=== PATIENT | male | born 1965 | race Caucasian/White ===

== ENCOUNTER 2019-12-05 07:57 | Day surgery (SDC) | payer MEDICAID ==
[~2019-12-05] VITALS: Ht 182.9 cm; Wt 102.3 kg
[2019-12-05] MEDS ORDERED: MECO10006 PO (08:22)
[2019-12-05] MEDS ORDERED: CHOL500049 PO (08:22)
[2019-12-05] MEDS ORDERED: METO25TA6 PO (08:22)
[2019-12-05] MEDS ORDERED: LEVO50TA PO (08:22)
[2019-12-05 08:30] VITALS: BP 161/118
[2019-12-05] MEDS ORDERED: normal saline 1000ml 1,000 ML IV PRN (08:45)
[2019-12-05] MEDS ORDERED: albumin 25% 100mL bottle x 1 IV PRN (08:45)
[2019-12-05 10:00] VITALS: BP 161/118
[2019-12-05 10:07] VITALS: BP 152/117
--- NOTE | 2019-12-05 10:30 | NUR ---
Spoke to to Racquel at Dr. Pineda's office in regards to labs for thoracentesis fluid.
[2019-12-05 11:30] LABS: AMYLASE,BODY FLUID 21 U/L; GLUCOSE,BODY FLUID 98 MG/DL; LDH,BODY FLUID 70 U/L
[2019-12-05 11:39] LABS: TOTAL PROTEIN,BODY FLUID < 2.0 G/DL
[2019-12-05 11:56] LABS: BF RBC COUNT 366 /CU MM; BF WBC COUNT 237 /CU MM (0-1000); BFAPPEAR CLOUDY; BFCOLOR YELLOW; BFVOLUME 60 ML
[2019-12-05 11:57] LABS: BF MESOTHELIAL CELLS MODERATE; LYMPHOCYTES,BODY FLUID 57 %; MONOCYTES,BODY FLUID 8 %; NEUTROPHILS,BODY FLUID 35 %
== END 2019-12-05 10:40 | disposition home or self-care (01) ==
LOC: SSTAY O 07:57
PROVIDERS: ATTEND Radiology Vascular & Interventional Radiology
DX: R18.8 Other ascites (principal); R14.0 Abdominal distension (gaseous); J90 Pleural effusion, not elsewhere classified; E03.9 Hypothyroidism, unspecified; I10 Essential (primary) hypertension; F10.20 Alcohol dependence, uncomplicated; F17.290 Nicotine dependence, other tobacco product, uncomplicated; Z79.899 Other long term (current) drug therapy
CPT/HCPCS: 32555; 71045; 76705; 82150; 82945; 83615; 84157; 87070; 89051

== ENCOUNTER 2023-07-27 08:22 | Emergency (ER) | payer MEDICAID ==
[~2023-07-27] VITALS: Ht 182.9 cm; Wt 104.8 kg
[~2023-07-27 08:22] MED LIST: CHOL500049 PO; LEVO50TA PO; LOP25T PO; MECO10006 PO
[2023-07-27 08:29] VITALS: BP 161/107; PULSE 112; RESP 24; TEMP 99.1; O2SAT 95
[2023-07-27 09:40] LABS: BASOPHILS % (AUTO) 0.5 % (0-1); EOSINOPHILS # (AUTO) 0.2 X10'3 (0-0.9); EOSINOPHILS % (AUTO) 2.2 % (0-6); HEMATOCRIT 35.3 % (42.0-52.0); HEMOGLOBIN 11.8 g/dl (14.0-17.9); LYMPHOCYTES # (AUTO) 0.9 X10'3 (1.1-4.8); LYMPHOCYTES % (AUTO) 11.2 % (21-51); MEAN CORPUSCULAR HEMOGLOBIN 31.1 PG (27.0-31.0); MEAN CORPUSCULAR HGB CONC 33.4 g/dL (33.0-36.5); MEAN PLATELET VOLUME 9.6 FL (7.4-10.4); MONOCYTES # (AUTO) 1.2 X10'3 (0-0.9); MONOCYTES % (AUTO) 14.7 % (2-12); NEUTROPHILS # (AUTO) 5.6 X10'3 (1.8-7.7); NEUTROPHILS % (AUTO) 71.4 % (42-75); PLATELET COUNT 211 X10'3 (140-440); RED CELL DISTRIBUTION WIDTH 15.2 % (11.5-14.5); WHITE BLOOD COUNT 7.9 X10'3 (4.5-11.0)
[2023-07-27 10:35] LABS: ALBUMIN 3.6 G/DL (3.4-5.0); ANION GAP 12 (8-16); BLOOD UREA NITROGEN 48 MG/DL (7-18); BUN/CREATININE RATIO 10.7 (10.0-20.0); CALCIUM 9.1 MG/DL (8.5-10.1); CHLORIDE 103 MMOL/L (99-107); GLUCOSE 102 MG/DL (70-104); POTASSIUM 4.4 MMOL/L (3.5-5.1); SODIUM 137 MMOL/L (135-145); eCRCL 19 ML/MIN; eGFR 13 ML/MIN
[2023-07-27] MEDS ORDERED: PRED20TA PO (13:09)
[2023-07-27] MEDS ORDERED: PROM118S5 PO (13:09)
== END 2023-07-27 14:13 | disposition home or self-care (01) ==
LOC: ER 08:23
DX: R05.9 Cough, unspecified (principal); R50.9 Fever, unspecified; J02.9 Acute pharyngitis, unspecified; R11.2 Nausea with vomiting, unspecified; R52 Pain, unspecified; Z79.899 Other long term (current) drug therapy
CPT/HCPCS: 36415; 71045; 80048; 83605; 84145; 85025; 87040; 99284